=== PATIENT | male | born 1950 ===

== ENCOUNTER 2023-12-07 05:30 | Day surgery (SDC) | payer OTHER ==
[2023-11-30 09:04] LABS: HEMATOCRIT 41.3 % (39.0-48.0); HEMOGLOBIN 14.3 g/dL (13-16.00); MEAN CELL VOLUME 96.5 fL (80.0-100.00); MEAN CORPUSCULAR HEMOGLOBIN 33.3 pg (27.00-32.0); MEAN CORPUSCULAR HGB CONC 34.5 g/dl (32.0-36.0); PLATELET COUNT 274 K/uL (150-450); RED BLOOD COUNT 4.28 M/uL (4.00-6.00); RED CELL DISTRIBUTION WIDTH 12.8 % (11.5-14.5)
[2023-11-30 09:05] LABS: PH,URINE 5.5 (5.0-8.0); URINE APPEARANCE Clear; URINE BILIRRUBIN Negative (NEGATIVE); URINE COLOR Yellow; URINE GLUCOSE Negative (NEGATIVE); URINE LEUKOCYTE Negative; URINE NITRATE Negative; URINE PROTEIN Negative (NEGATIVE); URINE UROBILINOGEN 0.2 E.U./dl
[2023-11-30 09:07] LABS: URINE EPITHELIAL CELLS 1.5 uL (0.0-38.8); URINE WBC 2.6 uL (0.0-23.2)
[2023-11-30 09:21] LABS: URINE BLOOD Negative; URINE RBC 1.2 uL (0.0-20.8)
[2023-11-30 09:28] LABS: PARTIAL THROMBOPLASTIN TIME 30.8 SECONDS (22.0-34.0); PROTHROMBIN TIME 10.5 SECONDS (9.0-11.5)
[2023-11-30 09:31] LABS: ALBUMIN 3.7 gm/dL (3.4-5.0); BILIRUBIN TOTAL 0.59 mg/dL (0.3-1.2); CALCIUM 9.1 mg/dL (8.5-10.1); CREATININE SERUM 0.74 mg/dL (0.70-1.30); GFR 103.39; GLOBULINA 3.6 G/DL (2.4-3.5); POTASSIUM 4.73 mEq/L (3.5-5.1); TOTAL PROTEIN 7.3 gm/dL (6.4-8.2)
[~2023-12-07 05:30] MED LIST: GLIPIZIDE ER5 MG PO; SIMVASTATIN5 MG
[2023-12-07] MEDS ORDERED: CEFAZOLIN SODIUM 1,000 MG VIAL ONE ×2 (09:23→13:10)
[2023-12-07] MEDS ORDERED: CEFAZOLIN SODIUM 1,000 MG VIAL IV SCH ×2 (10:30→11:30)
[2023-12-07] MEDS ORDERED: FAMOTIDINE/PF 20 MG/10 ML SYRINGE IV SCH (11:30)
[2023-12-07] MEDS ORDERED: FAMOTIDINE/PF 20 MG/2 ML VIAL ONE (13:10)
[2023-12-07] MEDS ORDERED: ENALAPRILAT DIHYDRATE 1.25 MG/ML VIAL IV ONE (14:03)
== END 2023-12-07 16:30 | disposition home or self-care (01) ==
LOC: CIR.AMB 05:30
PROVIDERS: ATTEND Specialist
DX: K40.90 Unilateral inguinal hernia, without obstruction or gangrene, not specified as recurrent (principal)
CPT/HCPCS: 49505; C1781